=== PATIENT | female | born 1985 | race Caucasian/White ===

== ENCOUNTER → 2018-09-30 | Emergency (ER) | payer OTHER ==
[~2018-09-30] VITALS: Ht 149.9 cm; Wt 54.4 kg
[~2018-09-30] MED LIST: CHLORDIAZEPO-A1 EACH; ELIQUIS2.5 MG; HYDROXYCHLOROQ200 MG; METOPROLOL SUCC25 MG; MYFORTIC360 MG; PREDNISONE20 MG; TACROLIMUS1 MG PO; ZANTAC300 MG
== END | disposition home or self-care (01) ==
LOC: ER 08:30 → CPU-OBS 08:35 → ER 08:35
DX: R07.89 Other chest pain (principal); N39.0 Urinary tract infection, site not specified; Z94.89 Other transplanted organ and tissue status